=== PATIENT | female | born 2005 ===

== ENCOUNTER 2025-05-06 18:08 | Emergency (ER) | payer SELFPAY ==
[~2025-05-06] VITALS: Ht 162.6 cm; Wt 128.3 kg
[2025-05-06 18:12] VITALS: BP 142/90; PULSE 100; RESP 16; TEMP 97.2; O2SAT 96
[2025-05-06 18:58] LABS: MEAN PLATELET VOLUME 8.1 FL (7.4-10.4); RED CELL DISTRIBUTION WIDTH 15.7 % (11.5-14.5)
[2025-05-06 19:04] LABS: CREATININE 0.85 MG/DL (0.40-0.90); TOTAL CARBON DIOXIDE 26.5 MMOL/L (24-32); eCRCL 90 ML/MIN; eGFR 84 ML/MIN
--- NOTE | 2025-05-06 19:36 | Physician Documentation ---
History of Present Illness ~ Chief Complaint: Dizziness Stated Complaint: HEADACHE/DIZZINESS HPI This is a 20-year-old female who presents with one day of feeling of dizziness worse when lying down, patient describes dizziness as everything spinning. Patient reports no new weakness or numbness, though reports feeling of general fatigue. Patient additionally reports she has had recent heavy menstrual periods. Medication Reconciliation Allergies: Coded Allergies: No Known Allergies (Unverified , 05/06/25) Review of Systems ROS As stated above in the HPI, otherwise all systems are reviewed and negative. Physical Exam Vital Signs: Temperature: 97.2, Source: Temporal, Heart Rate: 100, Respiratory Rate: 16, BP: 142/90, Pulse Oximetry: 96, Weight: 128.300 Oxygen Flow Rate: 0 Physical Exam VITALS: Reviewed and as above. GENERAL: Alert, nontoxic appearing, no apparent distress. RESPIRATORY: No increased work of breathing, no respiratory distress, speaking in full clear sentences NEURO: No focal motor weaknesses, negative Romberg, normal rapid alternating movement, steady unassisted gait Progress Results/Orders Results/Orders Vital Signs 05/06/25 18:12 Temp 97.2 Pulse 100 Resp 16 B/P (MAP) 142/90 Pulse Ox 96 O2 Flow Rate 0 Laboratory Tests Test 05/06/25 18:42 White Blood Count 10.6 Red Blood Count 5.17 Hemoglobin 13.0 Hematocrit 40.2 Mean Corpuscular Volume 77.8 L Mean Corpuscular Hemoglobin 25.0 L Mean Corpuscular Hemoglobin Concent 32.2 L Red Cell Distribution Width 15.7 H Platelet Count 356 Mean Platelet Volume 8.1 Neutrophils (%) (Auto) 71.1 Lymphocytes (%) (Auto) 22.2 Monocytes (%) (Auto) 4.7 Eosinophils (%) (Auto) 1.5 Basophils (%) (Auto) 0.5 Neutrophils # (Auto) 7.5 Lymphocytes # (Auto) 2.4 Monocytes # (Auto) 0.5 Eosinophils # (Auto) 0.2 Basophils # (Auto) 0.1 CBC Comment Sodium Level 141 Potassium Level 3.5 Chloride Level 108 H Carbon Dioxide Level 26.5 Anion Gap 7 L Blood Urea Nitrogen 11 Creatinine 0.85 Estimated GFR/1.73 m2 84 BUN/Creatinine Ratio 12.9 Glucose Level 121 H Calcium Level 8.6 Albumin 3.1 L Chemistry Comments Medical Decision Making Additional information obtaine: N/A Findings MSE performed in triage and patient returned to ED lobby by nursing staff to await available ED room. Patient appears to have eloped from lobby. Differential Dx:Considerations: Include: anemia, CVA, dehydration, dysrhythmia, electrolyte imbalance, encephalopathy, hypoglycemia, hypotension, hypovolemia, labyrinthitis, Meniere's disease, myasathenia gravis, myocardial infarction, pulmonary embolus, respiratory failure, TIA, VBI, vertigo central, vertigo peripheral, vestibular neuronitis Departure Disposition: 07 LEFT AWOL/ELOPED Impression: Primary Impression: Dizziness Referrals: NO PRIMARY CARE PROVIDER (PCP) Signature Scribe Signature: No scribe Attestation: The note accurately reflects work and decisions made by me.JEFFREY Silva 05/09/25 01:10 BRANDEE YANG May 06, 2025 19:36
== END 2025-05-06 22:17 | disposition left against medical advice (07) ==
LOC: ER 18:10
DX: R42 Dizziness and giddiness (principal); R53.83 Other fatigue
CPT/HCPCS: 36415; 80048; 85025; 99283